=== PATIENT | male | born 1990 | race Caucasian/White ===

== ENCOUNTER 2018-12-01 12:09 | Emergency (ER) | payer SELFPAY ==
[~2018-12-01] VITALS: Ht 188 cm; Wt 136.1 kg
[2018-12-01 12:14] VITALS: BP 125/78
--- NOTE | 2018-12-01 12:26 | NUR ---
Dr. Sapp evaluating patient at bedside.
[2018-12-01] MEDS ORDERED: ALUMINUM HYD/MAG/SIMETHICONE 30 ML UDC PO ONE (12:35)
[2018-12-01] MEDS ORDERED: LIDOCAINE VISCOUS 2% 20 ML UDC PO ONE (12:35)
[2018-12-01] MEDS ORDERED: FAMOTIDINE 20 MG TAB PO ONE (12:35)
--- NOTE | 2018-12-01 12:47 | NUR ---
C/O CENTER ABDOMINAL PAIN 8/ & ACHING W/ N/V/D X1 DAY. PT DENIES FEVER. PER PT, LBM TODAY AND DIARRHEA. DENIES TAKING MEDICATION FOR THE PAIN AT HOME. PER PT, EMESIS WAS CLEAR/YELLOW LIQUID. ABDOMEN SOFT/FLAT/ NON TENDET TO PALPATION. BOWEL SOUNDS PRESENT X4. PT IN SIDE LYING POSITION FOR COMFORT, SIDE RAIL UP X1, BED IN LOW POSITION.
[2018-12-01 12:49] LABS: BASOPHILS # (AUTO) 0.1 K/uL (0.00-0.22); BASOPHILS % (AUTO) 0.3 % (0.0-2.0); EOSINOPHILS % (AUTO) 0.2 % (0.0-4.0); HEMATOCRIT 52.4 % (36-52); HEMOGLOBIN 17.8 g/dL (12.0-18.0); LYMPHOCYTES # (AUTO) 2.5 K/uL (2.0-11.5); LYMPHOCYTES % (AUTO) 12.5 % (20.5-51.1); MEAN CORPUSCULAR HEMOGLOBIN 31 pg (27-31); MEAN CORPUSCULAR HGB CONC 34 g/dL (33-37); MEAN CORPUSCULAR VOLUME 89.8 fL (80-94); MONOCYTES # (AUTO) 0.8 K/uL (0.8-1.0); NEUTROPHILS # (AUTO) 16.4 K/uL (1.8-7.7); PLATELET COUNT (AUTO) 317 K/uL (140-450); RED BLOOD CELL COUNT(AUTO) 5.83 MIL/uL (4.20-6.10); RED CELL DISTRIBUTION WIDTH 13.6 % (11.6-13.7); WHITE BLOOD COUNT (AUTO) 19.8 K/uL (4.8-10.8)
[2018-12-01 13:24] LABS: ANION GAP 17.1 (8-16); CARBON DIOXIDE 24.7 mmol/L (21-32); POTASSIUM 3.8 mmol/L (3.5-5.1)
[2018-12-01 13:30] LABS: ALBUMIN 4.2 g/dL (3.4-5.0); TOTAL BILIRUBIN 0.5 mg/dL (0.0-1.0)
--- NOTE | 2018-12-01 13:49 | NUR ---
PT REPORTS FEELING BETTER. HE STATES " IT FEELS LIKE SOMETHING IN MY STOMACH MOVED AND NOW I FEEL HUNGRY".
[2018-12-01 14:12] LABS: BILIRUBIN,URINE 1+ (NEGATIVE); BLOOD, URINE TRACE-I (NEGATIVE); LEUKOCYTE ESTERASE ,URINE NEGATIVE (NEGATIVE); NITRITE, URINE NEGATIVE (NEGATIVE); UGLUCOSE NEGATIVE (NEGATIVE)
[2018-12-01 14:19] LABS: APPEARANCE,URINE HAZY (CLEAR); COLOR,URINE ORANGE (YELLOW)
[2018-12-01 14:22] LABS: RBC,URINE 0-5 /HPF (0-5); WBC,URINE 0-5 /HPF (0-5)
[2018-12-01 14:23] LABS: COARSE GRANULAR CASTS,URINE 0-2 /LPF (None Seen)
--- NOTE | 2018-12-01 16:42 | NUR ---
[facility] at bedside for wait and return transport to [facility] for CT scan.
--- NOTE | 2018-12-01 18:06 | NUR ---
[facility] RETURNED WITH PT FROM [facility] IN STABLE CONDITION AFTER CT WAS DONE.
--- NOTE | 2018-12-01 19:30 | NUR ---
Patient acting appropriatly, states she is ready to go home and denies pain at this time. Patient discharged with v/s stable. Written and verbal after care instructions given and explained. Patient verbalized understanding. Ambulatory with steady gait. All questions addressed prior to discharge. Advised to follow up with PMD.
[2018-12-01 19:42] VITALS: BP 132/70
== END 2018-12-01 19:30 | disposition home or self-care (01) ==
LOC: MED 12:09
DX: K52.9 Noninfective gastroenteritis and colitis, unspecified (principal)
CPT/HCPCS: 36415; 80053; 81001; 83690; 85025; 87086; 99284